=== PATIENT | female | born 1950 | race Caucasian/White ===

== ENCOUNTER → 2018-02-28 | Outpatient (CLI) | payer MEDICARE ==
[~2018-02-28] MED LIST: ATOR-2 PO; CROMOLYN; CROMOLYN 4% EACHEYE; FLUT16SP2 INH; MOXI400T PO; RIFA300C3 PO; THYR60TA PO; [UNRECOGNIZED DRUG - CODE] PO; triamcinolon TD
== END | disposition home or self-care (01) ==
LOC: CFH 12:52
PROVIDERS: ATTEND Internal Medicine
DX: J43.2 Centrilobular emphysema (principal); R91.8 Other nonspecific abnormal finding of lung field; M48.54XA Collapsed vertebra, not elsewhere classified, thoracic region, initial encounter for fracture; M85.88 Other specified disorders of bone density and structure, other site; Z88.0 Allergy status to penicillin; Z88.1 Allergy status to other antibiotic agents
CPT/HCPCS: 71250

== ENCOUNTER 2018-04-05 12:54 | Inpatient (IN) | payer MEDICARE ==
[~2018-04-05] VITALS: Ht 162.6 cm; Wt 79.8 kg
[2018-04-05] MEDS ORDERED: methylPREDNISolone SOD SUCC 125 MG/2 ML ONE (13:29)
[2018-04-05] MEDS ORDERED: ALBUTEROL SULFATE 2.5 MG/3 ML NPPB ONE (13:30)
[2018-04-05] MEDS ORDERED: SODIUM CHLORIDE FLUSH 10ML SYR IVF ONE (13:30)
[2018-04-05] MEDS ORDERED: methylPREDNISolone SOD SUCC 125 MG/2 ML IVP ONE (13:30)
[2018-04-05] MEDS ORDERED: ALBUTEROL SULFATE 2.5MG/0.5ML ONE (13:52)
[2018-04-05 13:57] LABS: BASOPHILS # (AUTO) 0.02 x10^3/uL (0-0.1); BASOPHILS % (AUTO) 0 % (0-1); EOSINOPHILS # (AUTO) 0.47 x10^3/uL (0-0.4); EOSINOPHILS % (AUTO) 5 % (1-7); LYMPHOCYTES # (AUTO) 0.98 x10^3/uL (1-3.4); LYMPHOCYTES % (AUTO) 9 % (22-44); MD NO; MEAN CORPUSCULAR HEMOGLOBIN 29.2 pg (27.0-34.8); MEAN CORPUSCULAR HGB CONC 32.9 g/dL (32.4-35.8); MEAN CORPUSCULAR VOLUME 88.7 fL (80-100); MEAN PLATELET VOLUME 7.7 fL (7.4-10.4); MONOCYTES # (AUTO) 0.46 x10^3/uL (0.2-0.8); MONOCYTES % (AUTO) 4 % (2-9); NEUTROPHILS % (AUTO) 82 % (42-75); PLATELET COUNT 300 x10^3/uL (130-400); RED BLOOD COUNT 3.92 x10^6/uL (3.82-5.3); RED CELL DISTRIBUTION WIDTH 14.4 % (9.6-15.2)
[2018-04-05 14:10] LABS: ALBUMIN 3.2 g/dL (3.4-5.0); ANION GAP 6 mmol/L (5-15); CALCIUM 9.7 mg/dL (8.5-10.1); CHLORIDE 103 mmol/L (98-107)
[2018-04-05 14:16] LABS: ALANINE AMINOTRANSFERASE 24 U/L (12-78); ALKALINE PHOSPHATASE 90 U/L (45-117); BILIRUBIN,TOTAL 0.8 mg/dL (0.2-1.0); CREATININE 1.38 mg/dL (0.55-1.02); TOTAL PROTEIN 7.2 g/dL (6.4-8.2); TROPONIN I < 0.015 ng/mL (0.000-0.045)
[2018-04-05] MEDS ORDERED: ONDANSETRON 2MG/ML, 2ML IVPush PRN (15:30)
[2018-04-05] MEDS ORDERED: ACETAMINOPHEN 325 MG TABLET PO PRN (15:30)
[2018-04-05 16:04] VITALS: BP 127/69
[2018-04-05] MEDS ORDERED: ISOS30TA8 PO (16:48)
[2018-04-05] MEDS ORDERED: METO-264 PO (16:48)
[2018-04-05] MEDS ORDERED: ATOR-2 PO (16:48)
[2018-04-05] MEDS ORDERED: FLUT1BLS3 INH (16:48)
[2018-04-05] MEDS ORDERED: UMEC62.5 IH (16:49)
[2018-04-05] MEDS ORDERED: LEVOFLOXACIN/PMX 500MG/100ML 100 ML IV ONE (17:00)
[2018-04-05] MEDS: methylPREDNISolone SOD SUCC 40 MG/ML IVPush SCH ×2 (17:55→23:36)
[2018-04-05] MEDS: SODIUM CHLORIDE 0.9% 1,000 ML IV SCH (17:55)
[2018-04-05 19:13] LABS: RAPID INFLUENZA A Negative (Negative); RAPID INFLUENZA B Negative (Negative)
[2018-04-05 19:15] VITALS: BP 111/71
[2018-04-05] MEDS: ALBUTEROL/IPRATROPIUM 2.5MG/0.5MG, 3 ML NPPB PRN (19:42)
[2018-04-05] MEDS ORDERED: DIPHENHYDRAMINE 50 MG CAPSULE PO PRN (20:30)
[2018-04-05] MEDS: BENZONATATE 100 MG CAPSULE PO PRN (21:15)
[2018-04-06 01:33] VITALS: BP 129/61
[2018-04-06 05:08] LABS: ALBUMIN 2.9 g/dL (3.4-5.0); ANION GAP 5 mmol/L (5-15); CALCIUM 9.2 mg/dL (8.5-10.1); CHLORIDE 105 mmol/L (98-107)
[2018-04-06 05:09] LABS: BASOPHILS # (AUTO) 0.01 x10^3/uL (0-0.1); BASOPHILS % (AUTO) 0 % (0-1); EOSINOPHILS % (AUTO) 0 % (1-7); LYMPHOCYTES % (AUTO) 10 % (22-44); MD NO; MEAN CORPUSCULAR VOLUME 87.8 fL (80-100); MEAN PLATELET VOLUME 7.6 fL (7.4-10.4); MONOCYTES # (AUTO) 0.07 x10^3/uL (0.2-0.8); MONOCYTES % (AUTO) 1 % (2-9); NEUTROPHILS # (AUTO) 6.03 x10^3/uL (1.8-6.8); NEUTROPHILS % (AUTO) 89 % (42-75); PLATELET COUNT 269 x10^3/uL (130-400); RED BLOOD COUNT 3.59 x10^6/uL (3.82-5.3); RED CELL DISTRIBUTION WIDTH 14.3 % (9.6-15.2)
[2018-04-06 05:13] LABS: CREATININE 1.21 mg/dL (0.55-1.02)
[2018-04-06 05:14] LABS: ALANINE AMINOTRANSFERASE 23 U/L (12-78); ALKALINE PHOSPHATASE 77 U/L (45-117); BILIRUBIN,TOTAL 0.4 mg/dL (0.2-1.0); TOTAL PROTEIN 6.6 g/dL (6.4-8.2)
[2018-04-06] MEDS: ALBUTEROL/IPRATROPIUM 2.5MG/0.5MG, 3 ML NPPB PRN (05:42)
[2018-04-06] MEDS: SODIUM CHLORIDE INHALATION 7%, 4 ML NPPB SCH ×2 (05:42→21:41)
[2018-04-06] MEDS: methylPREDNISolone SOD SUCC 40 MG/ML IVPush SCH (05:47)
[2018-04-06 06:45] VITALS: BP 123/62
[2018-04-06] MEDS: SODIUM CHLORIDE 0.9% 1,000 ML IV SCH ×2 (08:24→20:17)
[2018-04-06] MEDS: ENOXAPARIN 40 MG/0.4 ML SQ SCH (08:28)
[2018-04-06] MEDS ORDERED: ENOXAPARIN 30 MG/0.3 ML SQ SCH (09:00)
[2018-04-06] MEDS: ALBUTEROL/IPRATROPIUM 2.5MG/0.5MG, 3 ML NPPB SCH ×5 (10:21→22:58)
[2018-04-06 13:58] VITALS: BP 122/75
[2018-04-06] MEDS: LACTOBACILLUS CHEW TABLET PO SCH ×2 (15:49→21:39)
[2018-04-06] MEDS: methylPREDNISolone SOD SUCC 125 MG/2 ML IVPush SCH ×2 (15:49→21:44)
[2018-04-06] MEDS: LEVOFLOXACIN/PMX 250MG/50ML 50 ML IV SCH (18:26)
[2018-04-06 20:21] VITALS: BP 156/72
[2018-04-06] MEDS ORDERED: ALBUTEROL SULFATE 2.5 MG/3 ML ONE (21:07)
[2018-04-06] MEDS ORDERED: morphine SULFATE 10 MG/ML, 1ML IVPush ONE (21:30)
[2018-04-06 21:53] LABS: TROPONIN I 0.083 ng/mL (0.000-0.045)
[2018-04-06] MEDS: BENZONATATE 100 MG CAPSULE PO PRN (23:24)
[2018-04-07 03:02] VITALS: BP 124/72
[2018-04-07] MEDS: ALBUTEROL/IPRATROPIUM 2.5MG/0.5MG, 3 ML NPPB SCH ×6 (03:50→23:10)
[2018-04-07] MEDS: methylPREDNISolone SOD SUCC 125 MG/2 ML IVPush SCH ×4 (03:58→23:09)
[2018-04-07 05:26] LABS: TROPONIN I 0.086 ng/mL (0.000-0.045)
[2018-04-07] MEDS: SODIUM CHLORIDE INHALATION 7%, 4 ML NPPB SCH (05:35)
[2018-04-07 06:01] VITALS: BP 156/76
[2018-04-07] MEDS: NITROGLYCERIN 0.4 MG BOTTLE (25 TABS) SL PRN ×3 (06:06→06:19)
[2018-04-07] MEDS ORDERED: MORPHINE SULFATE 4 MG/ML, 1ML IVPush PRN (06:30)
[2018-04-07 07:43] VITALS: BP 152/80
[2018-04-07] MEDS ORDERED: ATORVASTATIN 80 MG TABLET PO SCH (09:00)
[2018-04-07 09:52] LABS: TROPONIN I 0.083 ng/mL (0.000-0.045)
[2018-04-07] MEDS: SODIUM CHLORIDE 0.9% 1,000 ML IV SCH ×2 (10:07→21:27)
[2018-04-07] MEDS: OMEPRAZOLE 20 MG CAPSULE.DR PO SCH (10:08)
[2018-04-07] MEDS: ENOXAPARIN 40 MG/0.4 ML SQ SCH (10:08)
[2018-04-07] MEDS: ASPIRIN 81 MG TABLET EC PO SCH (10:09)
[2018-04-07] MEDS: LACTOBACILLUS CHEW TABLET PO SCH ×3 (10:09→21:27)
[2018-04-07] MEDS: METOPROLOL SUCCINATE 50 MG TAB.ER.24H PO SCH (10:10)
[2018-04-07] MEDS: FLUTICASONE NASAL SPRAY 16GM NAS SCH (11:10)
[2018-04-07] MEDS: BENZONATATE 100 MG CAPSULE PO PRN (11:11)
[2018-04-07] MEDS: NEUTRA PHOS K 250 MG TABLET PO SCH ×3 (11:12→21:27)
[2018-04-07] MEDS: ISOSORBIDE MONONITRATE ER 30 MG TABLET PO SCH (11:13)
[2018-04-07 13:47] VITALS: BP 130/79
[2018-04-07] MEDS: LEVOFLOXACIN/PMX 250MG/50ML 50 ML IV SCH (17:53)
[2018-04-07 18:45] VITALS: BP 110/66
[2018-04-07] MEDS: TEMAZEPAM 15 MG CAPSULE PO PRN (23:09)
[2018-04-08 00:45] VITALS: BP 103/61
[2018-04-08] MEDS: ALBUTEROL/IPRATROPIUM 2.5MG/0.5MG, 3 ML NPPB SCH ×6 (03:00→23:15)
[2018-04-08] MEDS: methylPREDNISolone SOD SUCC 125 MG/2 ML IVPush SCH ×3 (04:46→23:04)
[2018-04-08] MEDS: BENZONATATE 100 MG CAPSULE PO PRN ×2 (05:26→23:43)
[2018-04-08 06:08] LABS: ALBUMIN 3.1 g/dL (3.4-5.0); ANION GAP 8 mmol/L (5-15); CALCIUM 9.6 mg/dL (8.5-10.1); CHLORIDE 111 mmol/L (98-107)
[2018-04-08 06:13] LABS: ALANINE AMINOTRANSFERASE 35 U/L (12-78); ALKALINE PHOSPHATASE 80 U/L (45-117); BILIRUBIN,TOTAL 0.2 mg/dL (0.2-1.0); CREATININE 1.11 mg/dL (0.55-1.02); TOTAL PROTEIN 6.8 g/dL (6.4-8.2)
[2018-04-08 06:14] LABS: MEAN CORPUSCULAR HEMOGLOBIN 29.5 pg (27.0-34.8); MEAN CORPUSCULAR VOLUME 89.3 fL (80-100); MEAN PLATELET VOLUME 7.9 fL (7.4-10.4); PLATELET COUNT 349 x10^3/uL (130-400); RED BLOOD COUNT 3.58 x10^6/uL (3.82-5.3)
[2018-04-08 06:43] LABS: BASOPHILS # (AUTO) 0.01 x10^3/uL (0-0.1); BASOPHILS % (AUTO) 0 % (0-1); EOSINOPHILS % (AUTO) 0 % (1-7); LYMPHOCYTES # (AUTO) 1.03 x10^3/uL (1-3.4); LYMPHOCYTES % (AUTO) 5 % (22-44); MD SCAN; MONOCYTES # (AUTO) 0.15 x10^3/uL (0.2-0.8); MONOCYTES % (AUTO) 1 % (2-9); NEUTROPHILS % (AUTO) 94 % (42-75)
[2018-04-08 07:02] VITALS: BP 131/77
[2018-04-08] MEDS: SODIUM CHLORIDE 0.9% 1,000 ML IV SCH (07:37)
[2018-04-08] MEDS: ENOXAPARIN 40 MG/0.4 ML SQ SCH (08:14)
[2018-04-08] MEDS: LACTOBACILLUS CHEW TABLET PO SCH ×3 (08:14→20:13)
[2018-04-08] MEDS: OMEPRAZOLE 20 MG CAPSULE.DR PO SCH (08:14)
[2018-04-08] MEDS: FLUTICASONE NASAL SPRAY 16GM NAS SCH (08:14)
[2018-04-08] MEDS: ISOSORBIDE MONONITRATE ER 30 MG TABLET PO SCH (08:15)
[2018-04-08] MEDS: METOPROLOL SUCCINATE 50 MG TAB.ER.24H PO SCH (08:15)
[2018-04-08] MEDS: ASPIRIN 81 MG TABLET EC PO SCH (08:15)
[2018-04-08 08:21] LABS: TROPONIN I 0.048 ng/mL (0.000-0.045)
[2018-04-08 11:46] VITALS: BP 152/92
[2018-04-08] MEDS: NITROGLYCERIN 0.4 MG BOTTLE (25 TABS) SL PRN (11:48)
[2018-04-08 12:07] VITALS: BP 145/76
[2018-04-08] MEDS ORDERED: LACTULOSE 20 GM/30 ML UDC PO PRN (16:30)
[2018-04-08] MEDS ORDERED: BISACODYL 10 MG SUPP PR PRN (16:30)
[2018-04-08 20:08] VITALS: BP 165/95
[2018-04-08] MEDS: LEVOFLOXACIN/PMX 250MG/50ML 50 ML IV SCH (20:13)
[2018-04-08] MEDS: ATORVASTATIN 80 MG TABLET PO SCH (20:13)
[2018-04-08] MEDS: SENNA/DOCUSATE TABLET PO SCH (20:14)
[2018-04-08] MEDS: TEMAZEPAM 15 MG CAPSULE PO PRN (23:04)
[2018-04-09 00:05] VITALS: BP 169/93
[2018-04-09] MEDS: ALBUTEROL/IPRATROPIUM 2.5MG/0.5MG, 3 ML NPPB SCH ×8 (04:25→23:00)
[2018-04-09 06:03] LABS: MEAN CORPUSCULAR HEMOGLOBIN 29.9 pg (27.0-34.8); MEAN CORPUSCULAR HGB CONC 33.5 g/dL (32.4-35.8); MEAN CORPUSCULAR VOLUME 89.3 fL (80-100); MEAN PLATELET VOLUME 7.7 fL (7.4-10.4); PLATELET COUNT 324 x10^3/uL (130-400); RED BLOOD COUNT 3.47 x10^6/uL (3.82-5.3); RED CELL DISTRIBUTION WIDTH 14.2 % (9.6-15.2)
[2018-04-09 06:11] LABS: ALBUMIN 2.9 g/dL (3.4-5.0); ANION GAP 6 mmol/L (5-15); CALCIUM 9.5 mg/dL (8.5-10.1); CHLORIDE 111 mmol/L (98-107)
[2018-04-09 06:15] LABS: ALANINE AMINOTRANSFERASE 41 U/L (12-78); ALKALINE PHOSPHATASE 82 U/L (45-117); BILIRUBIN,TOTAL 0.2 mg/dL (0.2-1.0); CREATININE 1.02 mg/dL (0.55-1.02); TOTAL PROTEIN 6.5 g/dL (6.4-8.2)
[2018-04-09 06:21] LABS: BASOPHILS % (AUTO) 0 % (0-1); EOSINOPHILS % (AUTO) 0 % (1-7); LYMPHOCYTES # (AUTO) 0.99 x10^3/uL (1-3.4); LYMPHOCYTES % (AUTO) 5 % (22-44); MD SCAN; MONOCYTES % (AUTO) 1 % (2-9); NEUTROPHILS # (AUTO) 18.18 x10^3/uL (1.8-6.8); NEUTROPHILS % (AUTO) 94 % (42-75)
[2018-04-09 07:54] VITALS: BP 176/88
[2018-04-09] MEDS: FLUTICASONE NASAL SPRAY 16GM NAS SCH (07:55)
[2018-04-09] MEDS: OMEPRAZOLE 20 MG CAPSULE.DR PO SCH (07:56)
[2018-04-09] MEDS: ASPIRIN 81 MG TABLET EC PO SCH (07:56)
[2018-04-09] MEDS: ISOSORBIDE MONONITRATE ER 30 MG TABLET PO SCH (07:56)
[2018-04-09] MEDS: LACTOBACILLUS CHEW TABLET PO SCH ×3 (07:56→20:19)
[2018-04-09] MEDS: METOPROLOL SUCCINATE 50 MG TAB.ER.24H PO SCH (07:56)
[2018-04-09] MEDS: BENZONATATE 100 MG CAPSULE PO PRN ×2 (07:56→22:05)
[2018-04-09] MEDS: ENOXAPARIN 40 MG/0.4 ML SQ SCH (07:57)
[2018-04-09] MEDS: DOCUSATE 100 MG CAPSULE PO SCH (08:07)
[2018-04-09] MEDS ORDERED: REGADENOSON 0.4 MG/5 ML SYRINGE ONE (08:25)
[2018-04-09 08:33] VITALS: BP 148/81
[2018-04-09] MEDS: methylPREDNISolone SOD SUCC 125 MG/2 ML IVPush SCH ×2 (10:31→22:05)
[2018-04-09] MEDS ORDERED: FUROSEMIDE 20 MG/2 ML IV ONE (11:30)
[2018-04-09 12:31] VITALS: BP 149/83
[2018-04-09 14:37] VITALS: BP 148/89
[2018-04-09] MEDS: FUROSEMIDE 20 MG/2 ML IV SCH (17:00)
[2018-04-09] MEDS: ATORVASTATIN 80 MG TABLET PO SCH (20:19)
[2018-04-09] MEDS: LEVOFLOXACIN/PMX 250MG/50ML 50 ML IV SCH (20:19)
[2018-04-09] MEDS: SENNA/DOCUSATE TABLET PO SCH (20:22)
[2018-04-09 20:29] VITALS: BP 150/93
[2018-04-09] MEDS: TEMAZEPAM 15 MG CAPSULE PO PRN (22:05)
[2018-04-10 02:59] VITALS: BP 125/77
[2018-04-10] MEDS: ALBUTEROL/IPRATROPIUM 2.5MG/0.5MG, 3 ML NPPB SCH ×4 (03:13→19:29)
[2018-04-10 05:26] LABS: BASOPHILS # (AUTO) 0.04 x10^3/uL (0-0.1); BASOPHILS % (AUTO) 0 % (0-1); EOSINOPHILS % (AUTO) 0 % (1-7); LYMPHOCYTES # (AUTO) 1.04 x10^3/uL (1-3.4); LYMPHOCYTES % (AUTO) 7 % (22-44); MD NO; MEAN CORPUSCULAR HEMOGLOBIN 29.3 pg (27.0-34.8); MEAN CORPUSCULAR HGB CONC 33.1 g/dL (32.4-35.8); MEAN CORPUSCULAR VOLUME 88.7 fL (80-100); MEAN PLATELET VOLUME 7.9 fL (7.4-10.4); MONOCYTES # (AUTO) 0.14 x10^3/uL (0.2-0.8); MONOCYTES % (AUTO) 1 % (2-9); NEUTROPHILS # (AUTO) 12.77 x10^3/uL (1.8-6.8); NEUTROPHILS % (AUTO) 91 % (42-75); PLATELET COUNT 315 x10^3/uL (130-400); RED BLOOD COUNT 3.57 x10^6/uL (3.82-5.3); RED CELL DISTRIBUTION WIDTH 14.5 % (9.6-15.2)
[2018-04-10 05:35] LABS: CHLORIDE 105 mmol/L (98-107)
[2018-04-10 05:40] LABS: ANION GAP 8 mmol/L (5-15); CALCIUM 9.9 mg/dL (8.5-10.1); CREATININE 1.09 mg/dL (0.55-1.02)
[2018-04-10] MEDS: OMEPRAZOLE 20 MG CAPSULE.DR PO SCH (06:47)
[2018-04-10] MEDS: FUROSEMIDE 20 MG/2 ML IV SCH ×2 (06:47→17:17)
[2018-04-10 06:55] VITALS: BP 151/85
[2018-04-10] MEDS: FLUTICASONE NASAL SPRAY 16GM NAS SCH (08:38)
[2018-04-10] MEDS: METOPROLOL SUCCINATE 50 MG TAB.ER.24H PO SCH (08:38)
[2018-04-10] MEDS: ASPIRIN 81 MG TABLET EC PO SCH (08:38)
[2018-04-10] MEDS: DOCUSATE 100 MG CAPSULE PO SCH (08:38)
[2018-04-10] MEDS: LACTOBACILLUS CHEW TABLET PO SCH ×3 (08:38→22:33)
[2018-04-10] MEDS: ISOSORBIDE MONONITRATE ER 30 MG TABLET PO SCH (08:38)
[2018-04-10] MEDS: ENOXAPARIN 40 MG/0.4 ML SQ SCH (08:40)
[2018-04-10] MEDS: methylPREDNISolone SOD SUCC 125 MG/2 ML IVPush SCH ×2 (09:14→22:35)
[2018-04-10 12:00] VITALS: BP 143/90
[2018-04-10 13:42] VITALS: BP 144/90
[2018-04-10] MEDS ORDERED: DILTIAZEM 5 MG/ML, 5ML ONE (13:53)
[2018-04-10] MEDS ORDERED: DILTIAZEM 5 MG/ML, 5ML IVPush ONE (14:00)
[2018-04-10] MEDS ORDERED: ALBUTEROL/IPRATROPIUM 2.5MG/0.5MG, 3 ML NPPB PRN (14:00)
[2018-04-10] MEDS: SOTALOL 80MG TABLET PO SCH (17:17)
[2018-04-10 18:49] VITALS: BP 121/75
[2018-04-10] MEDS: ATORVASTATIN 80 MG TABLET PO SCH (22:34)
[2018-04-10] MEDS: BENZONATATE 100 MG CAPSULE PO PRN (22:35)
[2018-04-10] MEDS: TEMAZEPAM 15 MG CAPSULE PO PRN (22:35)
[2018-04-11 01:07] VITALS: BP 134/77
[2018-04-11] MEDS: ALBUTEROL/IPRATROPIUM 2.5MG/0.5MG, 3 ML NPPB SCH ×3 (05:22→15:00)
[2018-04-11 05:52] LABS: ALANINE AMINOTRANSFERASE 48 U/L (12-78); ANION GAP 8 mmol/L (5-15); CALCIUM 9.7 mg/dL (8.5-10.1); CHLORIDE 100 mmol/L (98-107)
[2018-04-11 05:55] LABS: ALKALINE PHOSPHATASE 83 U/L (45-117); BILIRUBIN,TOTAL 0.4 mg/dL (0.2-1.0); CREATININE 1.21 mg/dL (0.55-1.02); TOTAL PROTEIN 6.6 g/dL (6.4-8.2)
[2018-04-11 06:13] LABS: BASOPHILS # (AUTO) 0.03 x10^3/uL (0-0.1); BASOPHILS % (AUTO) 0 % (0-1); EOSINOPHILS % (AUTO) 0 % (1-7); LYMPHOCYTES % (AUTO) 7 % (22-44); MD NO; MEAN CORPUSCULAR HEMOGLOBIN 30.2 pg (27.0-34.8); MEAN CORPUSCULAR HGB CONC 33.9 g/dL (32.4-35.8); MEAN CORPUSCULAR VOLUME 89.1 fL (80-100); MEAN PLATELET VOLUME 7.7 fL (7.4-10.4); MONOCYTES # (AUTO) 0.23 x10^3/uL (0.2-0.8); MONOCYTES % (AUTO) 1 % (2-9); NEUTROPHILS # (AUTO) 16.13 x10^3/uL (1.8-6.8); NEUTROPHILS % (AUTO) 92 % (42-75); PLATELET COUNT 370 x10^3/uL (130-400); RED BLOOD COUNT 3.84 x10^6/uL (3.82-5.3); RED CELL DISTRIBUTION WIDTH 14.2 % (9.6-15.2)
[2018-04-11] MEDS: FUROSEMIDE 20 MG/2 ML IV SCH (06:15)
[2018-04-11] MEDS: OMEPRAZOLE 20 MG CAPSULE.DR PO SCH (06:16)
[2018-04-11] MEDS: SOTALOL 80MG TABLET PO SCH (06:16)
[2018-04-11 07:18] VITALS: BP 128/77
[2018-04-11] MEDS: ENOXAPARIN 40 MG/0.4 ML SQ SCH (08:01)
[2018-04-11] MEDS: FLUTICASONE NASAL SPRAY 16GM NAS SCH (08:29)
[2018-04-11] MEDS: DOCUSATE 100 MG CAPSULE PO SCH (08:30)
[2018-04-11] MEDS: LACTOBACILLUS CHEW TABLET PO SCH (08:30)
[2018-04-11] MEDS: ISOSORBIDE MONONITRATE ER 30 MG TABLET PO SCH (08:30)
[2018-04-11] MEDS: ASPIRIN 81 MG TABLET EC PO SCH (08:31)
[2018-04-11] MEDS: METOPROLOL SUCCINATE 50 MG TAB.ER.24H PO SCH (08:31)
[2018-04-11] MEDS ORDERED: LEVOFLOXACIN 750 MG TABLET PO SCH (09:00)
[2018-04-11] MEDS ORDERED: SODIUM CHLORIDE 0.9% 1,000 ML IV ONE (11:00)
[2018-04-11] MEDS ORDERED: ATROPINE SYRINGE 0.1 MG/ML, 10ML ONE (11:19)
[2018-04-11] MEDS ORDERED: EPINEPHRINE SYRINGE 0.1 MG/ML, 10ML ONE ×2 (11:19→17:14)
[2018-04-11] MEDS ORDERED: BIVALIRUDIN 250 MG ONE (13:01)
[2018-04-11] MEDS ORDERED: VERAPAMIL 2.5 MG/ML, 2ML ONE (13:01)
[2018-04-11] MEDS ORDERED: NITROGLYCERIN 5 MG/ML, 10ML ONE (13:01)
[2018-04-11] MEDS ORDERED: MIDAZOLAM 1 MG/ML, 5ML ONE ×2 (13:01→14:37)
[2018-04-11] MEDS ORDERED: FENTANYL PF 100 MCG/2ML ONE ×3 (13:01→14:37)
[2018-04-11] MEDS ORDERED: HEPARIN 1,000 UNITS/ML, 10ML ONE (13:01)
[2018-04-11] MEDS ORDERED: TICAGRELOR 90 MG TABLET ONE (13:01)
[2018-04-11] MEDS ORDERED: LIDOCAINE/PF 1%, 30ML ONE (13:02)
[2018-04-11] MEDS ORDERED: MIDAZOLAM 1 MG/ML, 2ML ONE (13:57)
[2018-04-11 15:18] VITALS: BP 111/74
[2018-04-11] MEDS ORDERED: NOREPINEPHRINE 1 MG/ML, 4ML ONE (16:26)
[2018-04-11] MEDS ORDERED: NOREPINEPHRINE 4 MG in SODIUM CHLORIDE 0.9% 246 ML IV PRN (16:30)
[2018-04-11] MEDS ORDERED: CODE BLUE RESPONSE XX ONE (17:14)
[2018-04-11] MEDS ORDERED: SODIUM BICARB 8.4%, 50ML SYRINGE ONE (17:14)
== END 2018-04-11 18:46 | disposition expired | DRG 250 ==
LOC: ED 14:36 → EDIP 14:37 → SUATTDRO 15:02 → ED 15:29 → 3NE 15:57 → 5SO 04-07 06:46 → CCU 04-11 16:24
PROVIDERS: ADMIT Internal Medicine; ATTEND Internal Medicine
PROC: 5A12012 Performance of Cardiac Output, Single, Manual (ICD-10-PCS; principal; 2018-04-11)
PROC: 02703ZZ Dilation of Coronary Artery, One Artery, Percutaneous Approach (ICD-10-PCS; 2018-04-11)
PROC: B2111ZZ Fluoroscopy of Multiple Coronary Arteries using Low Osmolar Contrast (ICD-10-PCS; 2018-04-11)
PROC: 4A023N8 Measurement of Cardiac Sampling and Pressure, Bilateral, Percutaneous Approach (ICD-10-PCS; 2018-04-11)
PROC: B2151ZZ Fluoroscopy of Left Heart using Low Osmolar Contrast (ICD-10-PCS; 2018-04-11)
PROC: B21F1ZZ Fluoroscopy of Other Bypass Graft using Low Osmolar Contrast (ICD-10-PCS; 2018-04-11)
DX: T82.855A Stenosis of coronary artery stent, initial encounter (principal); J18.9 Pneumonia, unspecified organism; J96.21 Acute and chronic respiratory failure with hypoxia; N17.0 Acute kidney failure with tubular necrosis; J44.1 Chronic obstructive pulmonary disease with (acute) exacerbation; J44.0 Chronic obstructive pulmonary disease with (acute) lower respiratory infection; I25.110 Atherosclerotic heart disease of native coronary artery with unstable angina pectoris; Z95.1 Presence of aortocoronary bypass graft; I48.0 Paroxysmal atrial fibrillation; I25.5 Ischemic cardiomyopathy; N18.9 Chronic kidney disease, unspecified; I12.9 Hypertensive chronic kidney disease with stage 1 through stage 4 chronic kidney disease, or unspecified chronic kidney disease; Z66 Do not resuscitate; I46.9 Cardiac arrest, cause unspecified; E78.5 Hyperlipidemia, unspecified; K21.9 Gastro-esophageal reflux disease without esophagitis; M85.80 Other specified disorders of bone density and structure, unspecified site; Z96.642 Presence of left artificial hip joint; R73.9 Hyperglycemia, unspecified; D64.9 Anemia, unspecified; T38.0X5A Adverse effect of glucocorticoids and synthetic analogues, initial encounter; I25.82 Chronic total occlusion of coronary artery; Y83.1 Surgical operation with implant of artificial internal device as the cause of abnormal reaction of the patient, or of later complication, without mention of misadventure at the time of the procedure; Y92.89 Other specified places as the place of occurrence of the external cause; Z85.41 Personal history of malignant neoplasm of cervix uteri; Z99.81 Dependence on supplemental oxygen; Z80.3 Family history of malignant neoplasm of breast; Z90.710 Acquired absence of both cervix and uterus; Z90.722 Acquired absence of ovaries, bilateral; Z88.6 Allergy status to analgesic agent; Z88.1 Allergy status to other antibiotic agents; Z88.0 Allergy status to penicillin; Z88.8 Allergy status to other drugs, medicaments and biological substances; Z91.018 Allergy to other foods; Z86.73 Personal history of transient ischemic attack (TIA), and cerebral infarction without residual deficits
CPT/HCPCS: 36415; 71045; 71046; 78452; 80048; 80053; 83605; 83735; 83880; 84100; 84443; 84484; 85025; 87015; 87040; 87116; 87206; 87400; 92920; 92950; 93005; 93017; 93306; 93461; 93970; 94640; 96374; 99156; 99157; C1769; C1894; G0378; J0461; J0583; J1644; J1650; J1956; J2250; J2785; J3010; J3490; J7613; J7620; 92928; A9502; C1725; C1887; C9898; J1940; J2270; J2920; J2930; J7030; Q9967